=== PATIENT | male | born 1965 | race Caucasian/White ===

== ENCOUNTER 2017-05-01 13:31 | Emergency (ER) | payer OTHER ==
[~2017-05-01] VITALS: Ht 177.8 cm; Wt 77.0 kg
[2017-05-01 13:36] VITALS: TEMP 37; Ht 177.8 cm; Wt 77.0 kg
[2017-05-01 14:30] LABS: BASO % 0.2 %; BASO ABS # 0.01 K/uL (0-0.2); EOS % 2.4 %; EOS ABS # 0.12 K/uL (0-0.5); HEMATOCRIT 42.8 % (42-52); HEMOGLOBIN 15.2 g/dL (14.0-18.0); IG# 0.02 K/uL (0.00-0.02); LYMPH % 6.3 %; LYMPH ABS # 0.32 K/uL (1.2-3.4); MEAN CELL VOLUME 91.3 fL (80-100); MEAN CORPUSCULAR HEMOGLOBIN 32.4 pg (25-34); MEAN CORPUSCULAR HGB CONC 35.5 g/dl (32-36); MEAN PLATELET VOLUME 9.8 fL (7.4-10.4); MONO % 7.1 %; MONO ABS # 0.36 K/uL (0.11-0.59); NEUT % 83.6 %; NEUT ABS # 4.22 K/uL (1.4-6.5); PLATELET COUNT 171 K/uL (130-400); RED CELL DISTRIBUTION WIDTH CV 11.7 % (11.5-14.5); RED CELL DISTRIBUTION WIDTH SD 38.9 fL (36.4-46.3); WHITE BLOOD COUNT 5.05 K/uL (4.8-10.8)
[2017-05-01 14:49] LABS: CALCIUM 8.6 mg/dl (8.5-10.1); CREATININE 1.31 mg/dl (0.60-1.40); POTASSIUM 3.9 mmol/L (3.5-5.1)
[2017-05-01 15:00] VITALS: BP 116/76; PULSE 62; O2SAT 100
--- NOTE | 2017-05-01 15:00 | DIAGNOSTIC IMAGING REPORT ---
R ELBOW MIN 3 VIEWS ROUTINE CLINICAL HISTORY: likely R elbow bursitis, swelling to posterior aspect pain COMPARISON: None. DISCUSSION: The bones and joint spaces appear intact. There is no evidence of fracture, dislocation or bony disease. Soft tissue edema posterior to the olecranon. Soft tissue calcification as well as reactive osteophyte formation. Appearance suggests calcific bursitis/tendinitis. IMPRESSION: Calcific bursitis/tendinitis posterior to the proximal ulna/olecranon process. No acute bony abnormality. The above report was generated using voice recognition software. It may contain grammatical, syntax or spelling errors. Electronically signed by: Jeffery Blackwood M.D. 05/01/2017 2:59 PM Dictated Date/Time: 05/01/2017 2:56 PM
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
[2017-05-01] MEDS ORDERED: CEPH500C PO (15:32)
== END 2017-05-01 15:28 | disposition home or self-care (01) ==
LOC: C.EDB 13:32
DX: M70.21 Olecranon bursitis, right elbow (principal); I10 Essential (primary) hypertension; F17.210 Nicotine dependence, cigarettes, uncomplicated